=== PATIENT | male | born 1990 | race Caucasian/White ===

== ENCOUNTER 2017-12-21 19:07 | Emergency (ER) | payer SELFPAY ==
[~2017-12-21 19:07] MED LIST: ACE3 PO; AUG500 PO; LOR5/325; OMEP-218 PO; OND4 PO; OXYC-865 PO; ZOL5 PO
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
[2017-12-21 19:11] VITALS: BP 116/75
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
[2017-12-21] MEDS ORDERED: TRAM-420 PO (20:25)
== END 2017-12-21 20:31 | disposition home or self-care (01) ==
LOC: ER 19:24
DX: S60.221A Contusion of right hand, initial encounter (principal); S60.511A Abrasion of right hand, initial encounter
CPT/HCPCS: 99283

== ENCOUNTER → 2018-03-31 | Outpatient (CLI) | payer OTHER ==
[~2018-03-31] MED LIST changes: +ESCI10TA8 PO; +PANT40TA65 PO; +TRAM-420 PO
[2018-03-31 14:10] LABS: PLATELET COUNT, AUTOMATED 293 K/uL (150-450)
== END ==
LOC: LAB 13:40
PROVIDERS: ATTEND Internal Medicine
DX: F41.9 Anxiety disorder, unspecified (principal); K21.9 Gastro-esophageal reflux disease without esophagitis
CPT/HCPCS: 36415; 81001; 82040; 82150; 82247; 82310; 82374; 82435; 82565; 82947; 83690; 84075; 84132; 84155; 84295; 84443; 84450; 84460; 84520; 85025

== ENCOUNTER 2018-04-18 12:07 | Emergency (ER) | payer OTHER ==
--- NOTE | 2018-04-18 12:09 | ER Report ---
History and Physical Time Seen By : 12:09 HPI/ROS 27-year-old male with a history of alcohol use and abuse presents to the emergency department with his family at the bedside after taking 4-6 10 mg Lexapro tabs. He states that he did this in order to get high. He is not suicidal or homicidal. He denies any other drug use. He does report drinking alcohol yesterday. He does admit that he drinks too much alcohol, but reports that he has never had problems with alcohol withdrawal. He has no symptoms after the overdose. No chest pain, no shortness of breath, no nausea or vomiting. Allergies: Coded Allergies: hydrocodone bit (Verified Allergy, Unknown, 04/18/18) Home Meds Active Scripts Pantoprazole Sodium (PANTOPRAZOLE SODIUM) 40 Mg Tablet.dr, 40 MG PO QDAY, #30 TAB.SR 2 Refills Prov:ELSA HERNANDEZ MD 03/31/18 Escitalopram Oxalate (ESCITALOPRAM OXALATE) 10 Mg Tablet, 10 MG PO QDAY, #30 TAB 1 Refill Prov:ELSA HERNANDEZ MD 03/31/18 Hx Smoking: No Smoking Status: Never Smoker Hx Substance Use Disorder: Yes Hx Alcohol Use: Yes Constitutional Vital Sign - Last 24 Hours 04/18/18 12:14 Temp 98.9 Pulse 103 Resp 12 B/P (MAP) 138/93 Pulse Ox 93 O2 Delivery Room Air Intake and Output 04/18/18 04/18/18 04/19/18 14:59 22:59 06:59 Intake Total 1000 ml Balance 1000 ml Physical Exam General Appearance: The patient is alert, has no immediate need for airway protection and no current signs of toxicity. Eyes: Pupils equal and round no injection. Respiratory: Chest is non tender, lungs are clear to auscultation. Cardiac: regular rate and rhythm Gastrointestinal: Abdomen is soft and non tender, no masses, bowel sounds normal. Neck: Neck is supple and non tender. Extremities have full range of motion and are non tender. Skin: No rashes or lesions. DIFFERENTIAL DIAGNOSIS: After history and physical exam differential diagnosis was considered for depression, intentional overdose, SI, HI, serotonin syndrome Medical Decision Making Data Points Result Diagram: 04/18/18 1303 04/18/18 1303 Laboratory Hematology Test 04/18/18 13:03 Red Blood Count 5.40 M/uL (4.00-5.60) Mean Corpuscular Volume 93.3 fL (80.0-96.0) Mean Corpuscular Hemoglobin 32.6 pg (26.0-33.0) Mean Corpuscular Hemoglobin Concent 35.0 g/dL (32.0-36.0) Red Cell Distribution Width 13.4 % (11.5-14.5) Mean Platelet Volume 8.3 fL (7.2-11.1) Neutrophils (%) (Auto) 75.0 % (39.4-72.5) Lymphocytes (%) (Auto) 14.3 % (17.6-49.6) Monocytes (%) (Auto) 9.4 % (4.1-12.4) Eosinophils (%) (Auto) 1.0 % (0.4-6.7) Basophils (%) (Auto) 0.3 % (0.3-1.4) Nucleated RBC Relative Count (auto) 0.0 /100WBC Neutrophils # (Auto) 9.6 K/uL (2.0-7.4) Lymphocytes # (Auto) 1.8 K/uL (1.3-3.6) Monocytes # (Auto) 1.2 K/uL (0.3-1.0) Eosinophils # (Auto) 0.1 K/uL (0.0-0.5) Basophils # (Auto) 0.0 K/uL (0.0-0.1) Nucleated RBC Absolute Count (auto) 0.01 K/uL Sodium Level 140 mmol/L (137-145) Potassium Level 4.2 mmol/L (3.5-5.0) Chloride Level 102 mmol/L (98-107) Carbon Dioxide Level 24 mmol/L (22-30) Blood Urea Nitrogen 8 mg/dl (9-21) Creatinine 0.80 mg/dl (0.66-1.25) Glomerular Filtration Rate Calc > 60.0 Random Glucose 99 mg/dl (75-110) Calcium Level 9.6 mg/dl (8.4-10.2) Magnesium Level 1.9 mg/dl (1.7-2.2) Total Bilirubin 1.4 mg/dl (0.2-1.3) Aspartate Amino Transf (AST/SGOT) 21 U/L (0-35) Alanine Aminotransferase (ALT/SGPT) 30 U/L (0-56) Alkaline Phosphatase 80 U/L (0-126) Total Protein 8.4 g/dl (6.3-8.2) Albumin 5.0 g/dl (3.5-5.0) Chemistry Test 04/18/18 13:03 White Blood Count 12.8 k/uL (4.5-11.0) Red Blood Count 5.40 M/uL (4.00-5.60) Hemoglobin 17.6 g/dL (14.0-18.0) Hematocrit 50.3 % (42.0-52.0) Mean Corpuscular Volume 93.3 fL (80.0-96.0) Mean Corpuscular Hemoglobin 32.6 pg (26.0-33.0) Mean Corpuscular Hemoglobin Concent 35.0 g/dL (32.0-36.0) Red Cell Distribution Width 13.4 % (11.5-14.5) Platelet Count 296 K/uL (150-450) Mean Platelet Volume 8.3 fL (7.2-11.1) Neutrophils (%) (Auto) 75.0 % (39.4-72.5) Lymphocytes (%) (Auto) 14.3 % (17.6-49.6) Monocytes (%) (Auto) 9.4 % (4.1-12.4) Eosinophils (%) (Auto) 1.0 % (0.4-6.7) Basophils (%) (Auto) 0.3 % (0.3-1.4) Nucleated RBC Relative Count (auto) 0.0 /100WBC Neutrophils # (Auto) 9.6 K/uL (2.0-7.4) Lymphocytes # (Auto) 1.8 K/uL (1.3-3.6) Monocytes # (Auto) 1.2 K/uL (0.3-1.0) Eosinophils # (Auto) 0.1 K/uL (0.0-0.5) Basophils # (Auto) 0.0 K/uL (0.0-0.1) Nucleated RBC Absolute Count (auto) 0.01 K/uL Glomerular Filtration Rate Calc > 60.0 Calcium Level 9.6 mg/dl (8.4-10.2) Magnesium Level 1.9 mg/dl (1.7-2.2) Total Bilirubin 1.4 mg/dl (0.2-1.3) Aspartate Amino Transf (AST/SGOT) 21 U/L (0-35) Alanine Aminotransferase (ALT/SGPT) 30 U/L (0-56) Alkaline Phosphatase 80 U/L (0-126) Total Protein 8.4 g/dl (6.3-8.2) Albumin 5.0 g/dl (3.5-5.0) ED Course/Re-evaluation ED Course 27-year-old male with a history of alcohol use and abuse who presents to the emergency department after taking an overdose on his Lexapro in an attempt to get high. His vital signs are stable. He has a normal EKG. His electrolytes including magnesium are normal. He has no signs of serotonin syndrome. He denies any pain. He denies SI or HI. He has a counselor that he used to see at [facility], and he plans to call her tomorrow to set up an appointment for this week. Decision to Disposition Date: Apr 18, 2018 Decision to Disposition Time: 14:43 Depart Departure Latest Vital Signs Vital Signs Date Time Temp Pulse Resp B/P (MAP) Pulse Ox O2 Delivery O2 Flow Rate FiO2 04/18/18 12:14 98.9 103 12 138/93 93 Room Air Impression: Primary Impression: Overdose of antidepressant Condition: Improved Disposition: HOME OR SELF-CARE Referrals: ELSA HERNANDEZ MD (PCP) Patient Instructions: Adult Overdose (ED) Problem Qualifiers Primary Impression: Overdose of antidepressant Encounter type: initial encounter Injury intent: accidental or unintentional Qualified Codes: T43.201A - Poisoning by unspecified antidepressants, accidental (unintentional), initial encounter DANNI GUO MD Apr 18, 2018 12:09
[2018-04-18 12:14] VITALS: BP 138/93
--- NOTE | 2018-04-18 12:41 | EKG ---
FACILITY: [facility] [place] PATIENT NAME: OSWALD NOVAK : [id number] MR: [id number] V: [id number] EXAM DATE: ORDERING PHYSICIAN: DANNI GUO TECHNOLOGIST: KARINA Test Reason : OVERDOSE Blood Pressure : / mmHG Vent. Rate : 097 BPM Atrial Rate : 097 BPM P-R Int : 128 ms QRS Dur : 092 ms QT Int : 334 ms P-R-T Axes : 064 084 054 degrees QTc Int : 424 ms Normal sinus rhythm Normal ECG No previous ECGs available Confirmed by ANNA SCHMITT ([id number]) on 04/19/2018 6:28:39 AM Referred By: BRANT Confirmed By:ANNA SCHMITT
[2018-04-18] MEDS ORDERED: NS(*) 0.9% 1000 ML BAG 1,000 ML IV ONE (12:45)
[2018-04-18 13:12] LABS: PLATELET COUNT, AUTOMATED 296 K/uL (150-450)
== END 2018-04-18 14:51 | disposition home or self-care (01) ==
LOC: ER 12:14
DX: T43.221A Poisoning by selective serotonin reuptake inhibitors, accidental (unintentional), initial encounter (principal)
CPT/HCPCS: 83735; 85025; 93005; 96360; 99283; J7030; 82040; 82247; 82310; 82374; 82435; 82565; 82947; 84075; 84132; 84155; 84295; 84450; 84460; 84520

== ENCOUNTER 2018-12-12 22:25 | Emergency (ER) | payer OTHER ==
[~2018-12-12 22:25] MED LIST changes: +ESCI20TA8 PO
[2018-12-12 22:32] VITALS: BP 125/72
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
[2018-12-12] MEDS ORDERED: DIPHTH/TETANUS/ACEL. PERTUSSIS IM ONLY ONE (22:45)
== END 2018-12-12 23:08 | disposition home or self-care (01) ==
LOC: ER 22:37
DX: S01.01XA Laceration without foreign body of scalp, initial encounter (principal)
CPT/HCPCS: 90715

== ENCOUNTER 2018-12-19 19:27 | Emergency (ER) | payer OTHER ==
[2018-12-19 19:38] VITALS: BP 129/85
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
== END 2018-12-19 19:52 | disposition home or self-care (01) ==
LOC: ER 19:46
DX: S01.01XD Laceration without foreign body of scalp, subsequent encounter (principal)
CPT/HCPCS: 99281